=== PATIENT | male | born 1960 | race Hispanic/Latino ===

== ENCOUNTER 2021-10-25 07:09 | Day surgery (SDC) | payer BC ==
[2021-10-24 15:59] LABS: Absolute Lymphocytes (CBC) 1.8 K/uL (0.7-4.9); Hematocrit 43.4 % (39.6-49.0); Lymphocytes % 29.6 % (15.3-44.8); MPV 8.7 fL (7.6-11.3); RBC Red Blood Cell Count 4.83 M/uL (4.33-5.43)
[2021-10-24 16:14] LABS: Albumin 3.7 g/dL (3.4-5.0); Bilirubin Direct 0.2 mg/dL (0-0.2); Bilirubin Total 0.6 mg/dL (0.2-1.0); Potassium 4.1 mmol/L (3.5-5.1); Protein, Total 7.6 g/dL (6.4-8.2)
--- NOTE | 2021-10-24 16:44 | RAD REPORT ---
EXAM DESCRIPTION: Minnie Monroe And Elle (2 Views)10/24/2021 3:24 pm CLINICAL HISTORY: Preop for cholecystectomy COMPARISON: None FINDINGS: The lungs appear clear of acute infiltrate. The heart is normal size. Calcified granuloma right lung IMPRESSION: No acute abnormalities displayed
[2021-10-25] MEDS ORDERED: NA CHLORIDE 0.9% 1,000 ML ONE (07:15)
[2021-10-25] MEDS ORDERED: NA CHLORIDE 0.9% 50 ML ONE (07:48)
[2021-10-25] MEDS ORDERED: CEFOXITIN SODIUM 1 GM/VIAL ONE (07:48)
[2021-10-25] MEDS ORDERED: propofoL 200 MG/20 ML VIAL IV ONE (07:53)
[2021-10-25] MEDS ORDERED: ROCURONIUM 50 MG/5 ML VIAL IV ONE (07:53)
[2021-10-25] MEDS ORDERED: FENTANYL CITR 100 MCG/2 ML ONE ×3 (07:53→09:50)
[2021-10-25] MEDS ORDERED: LIDOCAINE 2% MPF 5 ML VIAL ONE (07:54)
[2021-10-25] MEDS ORDERED: MIDAZOLAM HCL 2 MG/2 ML INJ ONE (07:54)
[2021-10-25] MEDS ORDERED: ONDANSETRON 4 MG/2 ML VIAL ONE ×2 (07:55→08:23)
[2021-10-25] MEDS ORDERED: GLYCOPYRROLATE 0.2 MG/ML SYR ONE ×2 (08:34→09:10)
[2021-10-25] MEDS ORDERED: NEOSTIGMINE 1 MG/ML -5 ML ONE (09:08)
--- NOTE | 2021-10-25 09:15 | P.BOP ---
Preoperative diagnosis: Acute cholecystitis, RUQ abd pain Postoperative diagnosis: same plus Symptomatic cholelithiasis Primary procedure: Laparoscopic cholecystectomy Vp [employer] And Planning: Kaela Valenzuela (Aditya) Estimated blood loss: <10cc Specimen: gb Findings: inflemmed Gallbladder. Gallstones present Anesthesia: General Complications: None Drain(s): NOAH drain Transferred to: Recovery Room Condition: Good
[2021-10-25 11:10] VITALS: BP 119/64; TEMP 96.4; O2SAT 97
--- NOTE | 2021-10-26 07:47 | EKG ---
Test Date: 2021-10-24 Test Time: 14:05:19 Dials Supervisor: RENÉE MEASUREMENT RESULTS: Intervals: Rate: 61 MN: 162 QRSD: 108 QT: 386 QTc: 388 [place]: P: 31 MN: 162 QRS: -38 T: 9 INTERPRETIVE STATEMENTS: Normal sinus rhythm Left axis deviation Pulmonary disease pattern Incomplete right bundle branch block Nonspecific T wave abnormality Abnormal ECG No previous ECG available for comparison Electronically Signed On 10-26-21 07:41:52 CDT by Tremayne Uribe
== END 2021-10-25 11:33 | disposition home or self-care (01) ==
LOC: OR 07:09
PROVIDERS: ATTEND Surgery
PROC: 0FT44ZZ Resection of Gallbladder, Percutaneous Endoscopic Approach (ICD-10-PCS; principal; 2021-10-25 08:15)
DX: K80.10 Calculus of gallbladder with chronic cholecystitis without obstruction (principal); K81.0 Acute cholecystitis; R10.11 Right upper quadrant pain; Z20.822 Contact with and (suspected) exposure to COVID-19
CPT/HCPCS: 93005; 85025; 80048; 36415; 82150; 82947; 80076; 88304; 83690; 71046; 47562; U0003; J2704; J2250; J3010 ×3; J2710; J7030; J0694; J2405 ×2